=== PATIENT | female | born 1975 | race Caucasian/White ===

== ENCOUNTER 2024-04-21 17:02 | Emergency (ER) | payer OTHER, SELFPAY ==
[2024-04-21] MEDS ORDERED: Cyclobenzaprine 10 MG TAB ONE (17:17)
[2024-04-21] MEDS ORDERED: methylPREDNISolone Sod Succ/PF 125 MG/2 ML VIAL ONE (17:18)
== END 2024-04-21 17:30 | disposition home or self-care (01) ==
LOC: BURERS 17:02
DX: M54.14 Radiculopathy, thoracic region (principal); F17.200 Nicotine dependence, unspecified, uncomplicated
CPT/HCPCS: 96372; 99283; J2930